=== PATIENT | female | born 1980 | race Caucasian/White ===

== ENCOUNTER 2017-01-09 11:04 | Emergency (ER) | payer SELFPAY ==
--- NOTE | ~2017-01-09 | ER ---
PATIENT'S NAME: RANCHO SANTA FE [facility] AGE: 36 Y [address] ROOM: [place] [address] LOCATION: [facility] ADMIT DATE: 01/09/2017 ER/Outpatient Report DISCHARGE DATE: 01/09/2017 FAMILY PHYSICIAN: PHYSICIAN, NO ATTENDING PHYSICIAN: Artemio Reagan SEEN AT: 1115 hours. CHIEF COMPLAINT: Left ear pain. HISTORY OF PRESENT ILLNESS: The patient is a 36-year-old female who has had left ear pain for several days. Denies sore throat or cold symptoms. She has a history of swimmer's ear in the past. ALLERGIES: QUESTIONABLE AMOXICILLIN. CURRENT MEDICATIONS: See her copied list. MEDICAL HISTORY: Sciatic nerve damage. SURGERIES: She has had right ankle, right middle finger, and hysterectomy. SOCIAL HISTORY: History of tobacco abuse, alcohol occasionally, chews. REVIEW OF SYSTEMS: GENERAL: No fevers or chills. HEAD AND EENT: Includes left ear pain. Denies hearing loss or drainage. No complaint of sore throat. OBJECTIVE FINDINGS: VITAL SIGNS: Temperature is 97.8, respiratory rate 16, pulse 72, O2 sats 96, blood pressure 114/75. GENERAL APPEARANCE: No obvious distress. HEENT: Exam of the right ear showed normal tympanic membrane and external canal. The left external canal appeared slightly swollen. There was pain with pressure on the tragus. The tympanic membrane appeared just slightly pink. PATIENT'S NAME: R[facility] AGE: 36 Y [address] ROOM: [place] [address] LOCATION: [facility] ADMIT DATE: 01/09/2017 ER/Outpatient Report DISCHARGE DATE: 01/09/2017 FAMILY PHYSICIAN: PHYSICIAN, NO ATTENDING PHYSICIAN: Artemio Reagan NECK: No cervical adenopathy present. No preauricular adenopathy present. ASSESSMENT: External otitis, mild. PLAN: Cortisporin otic drops, a couple drops in the left ear canal 3-4 times a day. Ibuprofen or Aleve for pain. Follow up in 48 hours if not showing improvement. The patient verbalized understanding of our findings, recommendations, and agreed. MARY ABRAHAM FOR MD SATURNINO ORTEGA/modl /[id number] d: 01/09/17 1724 t: 01/26/17 0902, OUTPATIENT REPORT
== END 2017-01-09 11:30 | disposition disaster alternative care site (69) ==
LOC: GMED 11:04
DX: H60.92 Unspecified otitis externa, left ear (principal); Z90.710 Acquired absence of both cervix and uterus

== ENCOUNTER 2017-01-13 19:38 | Emergency (ER) | payer SELFPAY ==
--- NOTE | ~2017-01-13 | ER ---
PATIENT'S NAME: HARVEY HO [facility] AGE: 36 Y [address] ROOM: [place] [address] LOCATION: [facility] ADMIT DATE: 01/13/2017 ER/Outpatient Report DISCHARGE DATE: 01/13/2017 FAMILY PHYSICIAN: PHYSICIAN, NO ATTENDING PHYSICIAN: Abigail Kamara TIME: Seen at 19:55. CHIEF COMPLAINT: Low back pain. HISTORY OF PRESENT ILLNESS: The patient is a 36-year-old female, who presented with low back pain. She denied any injury. She states that she has had chronic back pain for several years as a result of an accident. The back pain is not associated with any fever or loss of bladder control. She states that she does have somewhat chronic numbness in the bottom of both feet. CURRENT MEDICATIONS: She is on gabapentin and Belsomra. ALLERGIES: SEE COPIED LIST. MEDICAL HISTORY: Includes 1. Previous back injury. 2. History of sciatic nerve pain. 3. Chronic insomnia. SURGERIES: She has had 1. Right ankle surgery in 2013 as well as right middle finger. 2. Hysterectomy. 3. Cholecystectomy. SOCIAL HISTORY: History of tobacco use, alcohol occasionally. Currently, not working. REVIEW OF SYSTEMS: GENERAL: No fevers or chills. HEAD AND ENT: No complaints of headache or visual disturbance. RESPIRATORY: She denies any cough or wheezing. GASTROINTESTINAL: No constipation. No change in bowel habits. PATIENT'S NAME: HARVEY HO [facility] AGE: 36 Y [address] ROOM: [place] [address] LOCATION: [facility] ADMIT DATE: 01/13/2017 ER/Outpatient Report DISCHARGE DATE: 01/13/2017 FAMILY PHYSICIAN: PHYSICIAN, NO ATTENDING PHYSICIAN: Abigail Kamara GENITOURINARY: No incontinence. MUSCULOSKELETAL: Includes low back pain, usually worse with movement. NEUROPSYCHIATRIC: Somewhat chronic numbness to the bottom of her feet. She denies any significant weakness today. PHYSICAL EXAMINATION: VITAL SIGNS: On exam, her blood pressure is 122/75, her temperature is 97.2, respiratory rate is 18, pulse is 78, and O2 saturations are 98%. GENERAL APPEARANCE: Alert. No obvious distress. HEAD AND ENT: Sclera was clear. Oral membranes were moist. Teeth in good repair. PULMONARY: Lung sounds are clear. ABDOMEN: Soft. No masses. BACK: Tenderness along the lumbar area. No noticeable spasms. NEUROLOGICAL: She had good reflexes patella arriaza. She was able to stand on her toes and walk on her heels. Her range of motion is somewhat limited. ASSESSMENT: Chronic back pain. PLAN: Morphine 10 mg IM. Recommend home, ice, heat, and massage. Strongly recommend that she get a family doctor for treatment of her chronic pain. MARY ABRAHAM FOR MD SATURNINO GALEANO/pepe /[id number] d: 01/14/17 0203 t: 01/27/17 1210, OUTPATIENT REPORT
== END 2017-01-13 20:40 | disposition disaster alternative care site (69) ==
LOC: GMED 19:38
DX: G89.29 Other chronic pain (principal); M54.5 Low back pain; F51.04 Psychophysiologic insomnia; Z87.891 Personal history of nicotine dependence; Z90.710 Acquired absence of both cervix and uterus; Z90.49 Acquired absence of other specified parts of digestive tract; Z79.899 Other long term (current) drug therapy; Z98.890 Other specified postprocedural states
CPT/HCPCS: J2270

== ENCOUNTER 2017-02-18 15:13 | Emergency (ER) | payer SELFPAY ==
--- NOTE | ~2017-02-18 | ER ---
PATIENT'S NAME: RONDA HOA Karson [facility] AGE: 37 Y [address] ROOM: [place] [address] LOCATION: ED ADMIT DATE: 02/18/2017 ER/Outpatient Report DISCHARGE DATE: 02/18/2017 FAMILY PHYSICIAN: PHYSICIAN, ASHLEIGH ATTENDING PHYSICIAN: Jennifer Almonte TIME SEEN: 1520 hours. CHIEF COMPLAINT: Numbness, right foot. HISTORY OF PRESENT ILLNESS: The patient is a 37-year-old female, well known to the emergency room. She presents with complaining of numbness involving the dorsal right foot. Symptoms started within the last 24 hours. She has also noticed some pain that extends from the ankle up the leg. She denies any injuries. ALLERGIES: SHE IS ALLERGIC TO PSEUDOEPHEDRINE, PEPTO-BISMOL, AND RISPERDAL. CURRENT MEDICATIONS: 1. Belsomra 20 mg for insomnia. 2. She has taken 3 Motrin today. The patient does have a history of a sciatic nerve damage bilaterally. She has also had a fracture to the right ankle, which required an open reduction and internal fixation. SOCIAL HISTORY: Smokes at least 2 cigarettes a day. Alcohol, occasionally. Chews tobacco. REVIEW OF SYSTEMS: GENERAL: No fevers. MUSCULOSKELETAL: Some mild pain to the right foot and right lower leg. NEURO: She has experienced some numbness to the dorsal aspect of her right foot. OBJECTIVE: VITAL SIGNS: Reviewed. GENERAL: She has appeared to walk without any significant limp. MUSCULOSKELETAL: Exam of the right foot showed no obvious swelling. No significant tenderness. She did have a strong pedal pulse. Sensation to light touch appeared grossly normal. ASSESSMENT: PATIENT'S NAME: HARVEY HO [facility] AGE: 37 Y [address] ROOM: [place] [address] LOCATION: ED ADMIT DATE: 02/18/2017 ER/Outpatient Report DISCHARGE DATE: 02/18/2017 FAMILY PHYSICIAN: PHYSICIAN, ASHLEIGH ATTENDING PHYSICIAN: Jennifer Almonte Numbness, right foot, possible tarsal tunnel syndrome. PLAN: Recommend limited activity. Naprosyn 500 one b.i.d. Follow up with [facility] next week if symptoms continue. The patient verbalized understanding of her findings and recommendations and agreed. MARY ABRAHAM FOR MD SATURNINO SINGER/pepe /[id number] d: 02/18/172123 t: 02/22/17 0643, OUTPATIENT REPORT
== END 2017-02-18 15:35 | disposition disaster alternative care site (69) ==
LOC: GMED 15:13
DX: R20.0 Anesthesia of skin (principal); F17.210 Nicotine dependence, cigarettes, uncomplicated; Z88.8 Allergy status to other drugs, medicaments and biological substances; Z79.899 Other long term (current) drug therapy

== ENCOUNTER 2017-04-10 02:29 | Emergency (ER) | payer SELFPAY ==
--- NOTE | ~2017-04-10 | ER ---
PATIENT'S NAME: HARVEY HO [facility] AGE: 37 Y [address] ROOM: [place] [address] LOCATION: [facility] ADMIT DATE: 04/10/2017 ER/Outpatient Report DISCHARGE DATE: FAMILY PHYSICIAN: PHYSICIAN, NO ATTENDING PHYSICIAN: Armand Sood Admission date and time documented in medical record. I saw the patient at 0245 hours. CHIEF COMPLAINT: Low back pain with left leg pain to the knee. No trauma or fall. HISTORY OF PRESENT ILLNESS: The patient is a 37-year-old female, who noticed that she was having some increasing low back pain and left leg pain shooting down to the knee that started around 1000 hours on 04/09/2017. This evening noticed that there is some swelling in her left upper leg. No pain or swelling below the knee. Again, no fall or trauma. No fever, chills, or sweats. Does have a chronic problem with her low back. Has had some sciatica in the past. No chest pain or shortness of breath. No abdominal pain, nausea, vomiting, or diarrhea. No urinary frequency, urgency, or dysuria. No recent coughs, colds, flus, fever, chills, or sweats. No spine pain. Mainly the paraspinal muscles in the lumbar spine especially over the left sacroiliac joint area. HOME MEDICATIONS: See attached medication list. ALLERGIES: PSEUDOEPHEDRINE, PEPTO-BISMOL, RISPERDAL. SOCIAL HISTORY: The patient chews tobacco 1 can a week. Smokes occasional cigarettes, occasional use of alcohol. SIGNIFICANT PAST MEDICAL HISTORY: Sciatica, chronic low back pain, tobacco abuse. OPERATIONS: Open reduction and internal fixation of right ankle fracture, cholecystectomy, tubal ligation, hysterectomy. REVIEW OF SYSTEMS: All systems reviewed by me are negative with exception of those discussed in the history of present illness. [facility] AGE: 37 Y [address] ROOM: [place] [address] LOCATION: [facility] ADMIT DATE: 04/10/2017 ER/Outpatient Report DISCHARGE DATE: FAMILY PHYSICIAN: PHYSICIAN, NO ATTENDING PHYSICIAN: Armand Sood PHYSICAL EXAMINATION: VITAL SIGNS: Temperature 97.4 tympanic, pulse 69, respirations 16, blood pressure 119/73, O2 saturation on room air is 98%. MUSCULOSKELETAL: On examination, the patient has decreased range of motion of her back especially flexion, extension, abduction to the left. Straight leg raising negative bilaterally. No swelling noted. Neurovascularly intact. Pulses intact. Strength intact. SKIN: Clear. IMPRESSION: Acute on chronic low back pain especially the left sacroiliac joint area with sciatica to the left knee. PLAN: The patient was given Toradol 60 mg IM, Solu-Medrol 125 mg IM in the emergency department. Dismissed home. Observation. Activity as tolerated. Flexeril 10 mg 3 times a day #30; Toradol 10 mg 1 every 6 hours x12 doses, Medrol Dosepak take as directed. Follow up with the personal physician in 7 to 10 days or sooner if needed. May need an MRI of her lumbosacral spine. Discussion ensued with the patient concerning my findings and recommendations, she understands. MD DAVID PEGUERO/modl /[id number] d: 04/10/17331 t: 04/10/17 182, OUTPATIENT REPORT
== END 2017-04-10 03:34 | disposition disaster alternative care site (69) ==
LOC: GMED 02:29
DX: G89.29 Other chronic pain (principal); M54.42 Lumbago with sciatica, left side; F17.220 Nicotine dependence, chewing tobacco, uncomplicated; Z88.8 Allergy status to other drugs, medicaments and biological substances; Z90.49 Acquired absence of other specified parts of digestive tract; Z90.710 Acquired absence of both cervix and uterus; Z98.890 Other specified postprocedural states; Z79.899 Other long term (current) drug therapy
CPT/HCPCS: J1885; J2930

== ENCOUNTER 2017-04-21 11:22 | Emergency (ER) | payer SELFPAY ==
--- NOTE | ~2017-04-21 | ER ---
PATIENT'S NAME: HARVEY HO [facility] AGE: 37 Y [address] ROOM: [place] [address] LOCATION: ED ADMIT DATE: 04/21/2017 ER/Outpatient Report DISCHARGE DATE: 04/21/2017 FAMILY PHYSICIAN: PHYSICIAN, NO ATTENDING PHYSICIAN: Roman Zhu Time of Arrival: 1125 hours. Time of Evaluation: 1125 hours. CHIEF COMPLAINT: Left leg pain. HISTORY OF PRESENT ILLNESS: The patient is a 37-year-old female, who presents to the emergency department today with a chief complaint of left leg pain. She reports she has a history of sciatic pain, feels similar. She reports she feels like it is swollen on the left side. She denies any fevers or chills. No nausea or vomiting. No diarrhea or constipation. The patient does have a history of chronic back pain from a skiing accident in . She reports it is on the lateral aspect. It does kind of start out on her buttock area and radiates down to her left leg. She denies any urinary symptoms. No loss of bowel or bladder. No saddle anesthesia. It is a sharp type pain. It is worse with movement. Currently, 8/10 in severity. PAST MEDICAL HISTORY: Sciatica, chronic low back pain, and tobacco abuse. PAST SURGICAL HISTORY: ORIF right ankle, cholecystectomy, tubal ligation, and hysterectomy. SOCIAL HISTORY: The patient uses one can of chewing tobacco. She drinks alcohol occasionally. She denies illicit drug use. ALLERGIES: SUDAFED, PEPTO-BISMOL, AND RISPERDAL. MEDICATIONS: Please see list. PRIMARY CARE DOCTOR: None. REVIEW OF SYSTEMS: All systems are reviewed by myself and are negative with the exception of PATIENT'S NAME: RONDA [facility]. [facility] AGE: 37 Y [address] ROOM: [place] [address] LOCATION: ED ADMIT DATE: 04/21/2017 ER/Outpatient Report DISCHARGE DATE: 04/21/2017 FAMILY PHYSICIAN: PHYSICIAN, NO ATTENDING PHYSICIAN: Roman Zhu those discussed in the HPI and past medical history. PHYSICAL EXAMINATION: VITAL SIGNS: Weight 102.1 kg. Blood pressure 131/73, pulse 88, respiratory rate 16, temperature 97.9, and oxygen saturation 98% on room air. GENERAL: The patient is a 37-year-old female, who appears stated age, in no acute distress at this time. HEENT: Head: Normocephalic and atraumatic. Pupils are equal, round, and reactive to light and accommodation. Extraocular motions are intact. Nares are patent bilaterally. TMs are clear. Oropharynx is clear. NECK: Supple. There is no nuchal rigidity. CARDIOVASCULAR: Regular rate and rhythm. No murmurs, rubs, or gallops. LUNGS: Clear to auscultation bilaterally. No wheezes, rales, or rhonchi. ABDOMEN: Soft, nontender, and nondistended. No rebound, rigidity, or guarding. MUSCULOSKELETAL: The patient does have tenderness to palpation along the left lateral leg. She does have tenderness to palpation over the left lumbar spine. SKIN: Warm and dry. There are no rashes or lesions noted. LABORATORY DATA AND X-RAYS: Labs and x-rays are obtained. CT scan is unremarkable. There is a chronic superior L1 endplate fracture of the lumbar spine. A urinalysis shows 100 leukocyte esterase, 10 to 20 epithelials. IMPRESSION: 1. Acute left leg pain. 2. Initial visit. EMERGENCY DEPARTMENT COURSE: The patient was brought back to the examination room. Seen and evaluated by myself. History and physical was performed as described above. The patient was given 10 mg of dexamethasone orally. I have discussed the results of the imaging and laboratory analysis with the patient. I have recommended [facility]. I have written a prescription for Neurontin for home. I have discussed return to care instructions including worsening of symptoms or other concerns to return to the emergency department as soon as possible. The patient is agreeable without further questions at that time. DISPOSITION: The patient is discharged to home in good condition. PATIENT'S NAME: HARVEY HO [facility] AGE: 37 Y [address] ROOM: [place] [address] LOCATION: ED ADMIT DATE: 04/21/2017 ER/Outpatient Report DISCHARGE DATE: 04/21/2017 FAMILY PHYSICIAN: PHYSICIAN, NO ATTENDING PHYSICIAN: Roman Zhu DO KJR/modl /[id number] d: 04/21/17 1636 t: 04/22/17 1448, OUTPATIENT REPORT
[2017-04-21 12:25] LABS: BILIRUBIN URINE NEGATIVE (NEGATIVE); BLOOD URINE NEGATIVE /UL (NEGATIVE); COLOR URINE YELLOW (YELLOW); GLUCOSE URINE NEGATIVE (NEGATIVE); KETONE URINE NEGATIVE (NEGATIVE); LEUKOCYTES URINE 100 /UL (NEGATIVE); NITRITE URINE NEGATIVE (NEGATIVE); PROTEIN URINE NEGATIVE (NEGATIVE); TURBIDITY URINE 1+ (CLEAR); UROBILINOGEN URINE 1 mg/dL (NORMAL)
[2017-04-21 12:47] LABS: RBC URINE 0-2 #/HPF (NEGATIVE)
[2017-04-21 12:48] LABS: BACTERIA URINE FEW (NEGATIVE)
== END 2017-04-21 13:30 | disposition disaster alternative care site (69) ==
LOC: GMED 11:22
PROVIDERS: Emergency Medicine
DX: M79.605 Pain in left leg (principal); G89.29 Other chronic pain; M54.5 Low back pain; F17.220 Nicotine dependence, chewing tobacco, uncomplicated; Z90.710 Acquired absence of both cervix and uterus; Z98.890 Other specified postprocedural states; Z88.8 Allergy status to other drugs, medicaments and biological substances
CPT/HCPCS: J1100